=== PATIENT | male | born 1970 | race Caucasian/White ===

== ENCOUNTER 2017-02-10 11:25 | Emergency (ER) | payer SELFPAY ==
[~2017-02-10] VITALS: Ht 177.8 cm; Wt 84.4 kg
== END 2017-02-10 13:50 | disposition short-term general hospital (02) ==
LOC: ER 11:25
DX: I13.0 Hypertensive heart and chronic kidney disease with heart failure and stage 1 through stage 4 chronic kidney disease, or unspecified chronic kidney disease (principal); I50.9 Heart failure, unspecified; N18.9 Chronic kidney disease, unspecified; E87.1 Hypo-osmolality and hyponatremia; R94.5 Abnormal results of liver function studies; D64.9 Anemia, unspecified; Z79.899 Other long term (current) drug therapy; E55.9 Vitamin D deficiency, unspecified; F32.9 Major depressive disorder, single episode, unspecified; F17.220 Nicotine dependence, chewing tobacco, uncomplicated
CPT/HCPCS: J0360; J1940